=== PATIENT | male | born 1985 | race Caucasian/White ===

== ENCOUNTER 2023-09-05 10:22 | Emergency (ER) | payer BC ==
[2023-09-05 11:08] LABS: BASOPHILS # (AUTO) 0.2 10^3/uL (0.0-0.1); BASOPHILS % (AUTO) 1.3 %; EOSINOPHILS # (AUTO) 0.8 10^3/uL (0.0-0.7); EOSINOPHILS % (AUTO) 7.4 %; HCT - HEMATOCRIT 50.9 % (42.0-52.0); HGB - HEMOGLOBIN 16.3 g/dL (14.0-18.0); LYMPHOCYTES # (AUTO) 3.9 10^3/uL (1.5-3.5); LYMPHOCYTES % (AUTO) 35.1 %; MEAN CORPUSCULAR HEMOGLOBIN 28.4 pg (27.0-31.0); MEAN CORPUSCULAR VOLUME 88.8 fL (80.0-94.0); MEAN PLATELET VOLUME 9.6 fL (7.4-11.4); MONOCYTES # (AUTO) 0.7 10^3/uL (0.0-1.0); MONOCYTES % (AUTO) 6.3 %; NEUTROPHILS # (AUTO) 5.5 10^3/uL (1.5-6.6); NEUTROPHILS % (AUTO) 49.6 %; PLT - PLATELET COUNT 389 10^3/uL (130-450); RED BLOOD COUNT 5.73 10^6/uL (4.70-6.10); RED CELL DISTRIBUTION WIDTH 12.3 % (12.0-15.0); WHITE BLOOD COUNT 11.1 x10^3/uL (4.8-10.8)
--- NOTE | 2023-09-05 11:10 | ED Physician Documentation ---
PD HPI ABD PAIN - Stated complaint Stated Complaint: LT LWR ABD PX,SWEATY, NAUSEA - Chief complaint Chief Complaint: Abd Pain - History obtained from History obtained from: Patient - History of Present Illness Timing - onset: How many hours ago (1) Timing - duration: Hours (1) Timing - details: Abrupt onset, Still present Pain level max: 10 Pain level now: 10 Quality: Cramping (The patient had an onset of severe cramping pain left flank to left lower abdomen associated with nausea sweating and lightheadedness about 1 hour prior to arrival. He states similar symptoms to a kidney stone several years ago.), Aching, Pain (severe) Location: LLQ Radiation: Left flank Associated symptoms: Nausea, Vomiting. No: Diarrhea, Dysuria, Hematuria Similar symptoms before: Diagnosis (kidney stone several years ago.) Recently seen: Not recently seen Review of Systems Constitutional: denies: Fever, Chills Nose: denies: Rhinorrhea / runny nose, Congestion Throat: denies: Sore throat Respiratory: denies: Cough GI: denies: Constipation, Diarrhea PD PAST MEDICAL HISTORY - Past Medical History Past Medical History: Yes Cardiovascular: None Respiratory: None Neuro: None Endocrine/Autoimmune: None GI: GERD : Kidney stones HEENT: None Psych: None Derm: Other drug resistant infections - Past Surgical History Past Surgical History: No - Present Medications Home Medications: Ambulatory Orders Medication Instructions Recorded Confirmed Ibuprofen [Motrin] 600 mg PO TID PRN #25 tab 09/05/23 Ondansetron Odt [Zofran] 4 mg TL Q6H PRN #10 tablet 09/05/23 Oxycodone HCl/Acetaminophen 1 each PO Q6H PRN #20 tablet 09/05/23 [Percocet 5-325 mg Tablet] Tamsulosin [Flomax] 0.4 mg PO DAILY #5 cap 09/05/23 - Allergies Allergies/Adverse Reactions: Allergies Allergy/AdvReac Type Severity Reaction Status Date / Time No Known Drug Allergies Allergy Verified 09/05/23 10:44 - Social History Does the pt smoke?: No Smoking Status: Never smoker Does the pt drink ETOH?: No Does the pt have substance abuse?: No - Immunizations Immunizations are current?: Yes - POLST Patient has POLST: No PD ED PE NORMAL - Vitals Vital signs reviewed: Yes - General General: Alert and oriented X 3, Well developed/nourished, Other (severe pain, pale and diaphoretic. ) - Neck Neck: Supple, no meningeal sign, No adenopathy - Cardiac Cardiac: No murmur. No: RRR (bradycardic) - Respiratory Respiratory: No respiratory distress, Clear bilaterally - Abdomen Abdomen: Normal bowel sounds, Soft, Non distended, No organomegaly, Other (some tender left abd without guarding nor percussion tenderness. ) - Derm Derm: Other (pale and diaphoretic initially. ). No: Normal color, Warm and dry - Neuro Neuro: Alert and oriented X 3, No motor deficit, Normal speech Results - Vitals Vitals: Vital Signs - 24 hr 09/05/23 09/05/23 09/05/23 10:45 11:28 12:00 Temperature 36.4 C L Heart Rate 41 L 45 L 47 L Respiratory 18 14 17 Rate Blood Pressure 133/76 H 146/86 H 154/78 H O2 Saturation 100 100 98 09/05/23 09/05/23 09/05/23 13:00 13:30 14:00 Temperature Heart Rate 51 L 49 L 54 L Respiratory 16 14 14 Rate Blood Pressure 145/81 H 121/82 H 111/68 O2 Saturation 97 97 97 Oxygen O2 Source Room air - Labs Labs: Laboratory Tests 09/05/23 09/05/23 09/05/23 10:56 10:56 10:56 WBC 11.1 H RBC 5.73 Hgb 16.3 Hct 50.9 MCV 88.8 MCH 28.4 MCHC 32.0 RDW 12.3 Plt Count 389 MPV 9.6 Neut # (Auto) 5.5 Lymph # (Auto) 3.9 H Ogle # (Auto) 0.7 Eos # (Auto) 0.8 H Baso # (Auto) 0.2 H Absolute Nucleated RBC 0.00 Nucleated RBC % 0.0 Sodium 139 Potassium 4.1 Chloride 106 Carbon Dioxide 26 Anion Gap 7.0 BUN 8 Creatinine 0.9 Estimated GFR (MDRD) 95 Glucose 140 H Calcium 9.6 Magnesium 2.0 Total Bilirubin 0.7 AST 32 ALT 60 Alkaline Phosphatase 55 Total Protein 7.5 Albumin 4.6 Globulin 2.9 Albumin/Globulin Ratio 1.6 Lipase 29 - Rads (name of study) abd/pelvic CT Relevant Findings:: Prelim report reviewed, EMP independent interpretation of test (3 mm left ureteral stone with mild hydro-. Incidental note of fatty liver and sigmoid diverticulosis) PD Medical Decision Making - ED course Complexity details: reviewed results (left ureteral stone 3 mm. ), considered differential, d/w patient ED course: The patient presented with the sudden onset of pain of the left flank to the left abdomen 1 hour prior. He was very markedly pale, diaphoretic, nauseous. He denied any chest pain. However he did appear bradycardic with a heart rate of 41. Blood pressure was also borderline low approximately 100 systolic. Initial concern of course for heart related or vascular. However on exam he seemed alert and conversant without any notable abdominal tenderness. The pain was in the distribution and character consistent with kidney stone. He states he did have a similar response of the sweaty and lightheaded with the prior kidney stone several years ago. He was on the heart monitor. EKG was done which showed sinus bradycardia. His color was pale but improved with initial IV fluid and the initial pain medicines. Heart rate improved to mid 50s which the patient states is baseline for him. Blood pressure was in the normal range subsequently as well. The patient was given IV fluids as well as Toradol, Zofran and hydrocodone hydromorphone for the pain. This provided a decrease in the pain level from approximately 10-7 or 8. Repeat dose of hydromorphone then guided into the range of 3-5. He did have some variability in the intensity. He had an EKG G that did not show any ischemic changes. CT scan of the abdomen including contrast did not show any obvious vascular problems. There is no free fluid. It was present a 3 mm stone in the proximal third left ureter with mild hydronephrosis. Incidental findings were some fatty liver and moderate sigmoid diverticulosis. I conveyed both of these to the patient and he was given a copy of his CT report. The CT official reading did agree with the 3 mm stone in the ureter. The patient still had moderate pain. He was given lidocaine IV for renal dose seen for stone. Also tamsulosin orally and dexamethasone anti-inflammatory. Repeat dose of hydromorphone as well. At this point the patient is stating he is reasonably comfortable with the pain level varying between 2 and 4 which she feels is tolerable for oral medicine. They are visiting from [facility] and will be leaving at the end of the week. I did provide urology follow-up phone number for here if he needs urgent follow-up in the meantime. Otherwise he can return to the ER. Basic blood count and chemistry panel did not have any notable abnormalities. Departure - Departure Clinical Impression: Left sided abdominal pain, Ureterolithiasis Condition: Stable Record reviewed to determine appropriate education?: Yes Instructions: ED Stone Renal W Colic Follow-Up: Taiwo Salgado MD [Provider Admit Priv/Credential] - Prescriptions: Tamsulosin [Flomax] 0.4 mg PO DAILY #5 cap Ibuprofen [Motrin] 600 mg PO TID PRN #25 tab PRN Reason: Pain Oxycodone HCl/Acetaminophen [Percocet 5-325 mg Tablet] 1 each PO Q6H PRN #20 tablet PRN Reason: pain Ondansetron Odt [Zofran] 4 mg TL Q6H PRN #10 tablet PRN Reason: Nausea / Vomiting Comments: You do have an approximately 3 mm stone on the left that still in the upper part of the ureter. Hopefully the worst of the pain is over now as we try to relieve some of the spasming and inflammation associated with the initial passage of the stone. Stay well-hydrated. Use a combination of anti-inflammatory such as higher strength ibuprofen 3 times daily with food. Use ondansetron if needed for nausea. Commonly will add a medication to help with his spasming of the ureter called t amsulosin. Add acetaminophen/Tylenol 500 to 650 mg 4 times daily over the next several days. I also prescribed oxycodone pain medicine to use every 4-6 hours if needed for worse pain. Hopefully this will be short-term and the stone of your size will pass about 90% of the time within a couple of days. I did give you the name of the urologist in town if you are not a apparently passed the stone over the next couple of days and are looking for follow-up. If you are doing well with the medication or have passed the stone then obviously no follow-up is needed. If you are doing well with the stone and medication but have not apparently passed it over the next week or so, then follow-up with the urologist back home in [place]. I sent your prescriptions to your listed pharmacy. I am prescribing a short course of narcotic pain medication for you. These are potentially dangerous and addictive medications that should be used carefully. These medications may constipate you. Take an [id number] stool softener such as docusate twice daily with plenty of water while taking these medications. If you go 24 hours without a bowel movement, take [id number] MiraLAX, per package instructions. Do not drink or drive while taking these medications. If you received narcotic or sedating medications while in the emergency department do not drive for 24 hours. Store this medication in a safe, secure place and out of reach of children. It is a violation of federal law to give or sell this medication to another person or to use in a manner other than prescribed. The ED will not refill narcotic prescriptions, including prescriptions lost or stolen. You can dispose of unwanted medications at the [facility]'s office or at several pharmacies such as [facility]. Return to the ER certainly if worsening pain despite medications etc. Forms: PCP List
[2023-09-05 11:22] LABS: ALBUMIN 4.6 g/dL (3.2-5.5); ALBUMIN/GLOBULIN RATIO 1.6 (1.0-2.2); BILIRUBIN,TOTAL 0.7 mg/dL (0.2-1.0); CALCIUM 9.6 mg/dL (8.5-10.3); CREATININE 0.9 mg/dL (0.6-1.3); POTASSIUM 4.1 mmol/L (3.5-4.5); TOTAL PROTEIN 7.5 g/dL (6.4-8.9)
[2023-09-05] MEDS: KETOROLAC 15 MG/ML VIAL IVP STA (11:24)
[2023-09-05] MEDS: HYDROmorphone 1 MG/ML CARPUJECT IVP STA ×3 (11:24→13:50)
[2023-09-05] MEDS: ONDANSETRON 4 MG/2 ML VIAL IVP STA (11:25)
[2023-09-05] MEDS: SODIUM CHLORIDE 0.9% 1,000 ML IV STA (11:27)
[2023-09-05] MEDS ORDERED: iohexoL-300 100 ML VIAL ONE (11:56)
--- NOTE | 2023-09-05 12:45 | CT Report ---
PROCEDURE: Abdomen/Pelvis W INDICATIONS: left flank to abd pain CONTRAST: 100ml omni 300 TECHNIQUE: After the administration of intravenous contrast, a CT scan of the abdomen and pelvis was performed. Images were recorded and evaluated at appropriate window settings. Reformats: coronal and sagittal. F or radiation dose reduction, the following was used: automated exposure control, adjustment of mA and /or kV according to patient size. COMPARISON: None. FINDINGS: Image quality: Diagnostic. Lower chest: Unremarkable. Liver: No solid mass. Moderate diffuse hepatic steatosis with prominence of the left lobe of the live r. Gallbladder: No radiopaque stones or wall thickening. Biliary tree: No intrahepatic or extrahepatic dilation, accounting for age. Spleen: No splenomegaly. Pancreas: No pancreatic ductal dilation. Adrenals: No adrenal nodule. Kidneys and ureters: There is a 3 mm obstructing stone in the left ureter with potential periureteral extravasation of urine. There is very mild left hydronephrosis noted. The ureteral stone is present at the level of L3. Size and enhancement of both kidneys is within normal limits. No right hydronephr osis. Stomach, bowel and peritoneum: No gastric or small bowel dilation. No abnormal wall thickening. No pa thologic free fluid. Moderate sigmoid diverticulosis. Lymph nodes: No central or retroperitoneal adenopathy. Vessels: No infrarenal aortic aneurysm. Patent portal vein. PELVIS Reproductive organs: Unremarkable. Bladder: No abnormal wall thickening, accounting for underdistention. Pelvic lymph nodes: No pelvic adenopathy by size criteria. Bones: No aggressive osseous abnormality. Other: No significant ventral or inguinal hernia. IMPRESSION: 1. A 3 mm stone at the level of L3 and the left ureter results in mild left hydronephrosis. There is a question of left periureteral extravasation of urine. 2. Moderate diffuse hepatic steatosis with prominence of the left lobe of the liver. 3. Moderate sigmoid diverticulosis, advanced for patient age. Reviewed by: Slim Mendoza MD on 09/05/2023 12:44 PM PDT Approved by: Slim Mendoza MD on 09/05/2023 12:44 PM PDT Station ID: [id number]
[2023-09-05] MEDS: iohexoL-300 100 ML VIAL IVP ONE (13:01)
[2023-09-05] MEDS: LIDOCAINE-MPF 2% 8 ML in SODIUM CHLORIDE 0.9% 50 ML IV STA (13:50)
[2023-09-05] MEDS: DEXAMETHASONE 10 MG/ML VIAL IVP STA (13:50)
[2023-09-05 14:12] VITALS: BP 111/68; O2SAT 97
== END 2023-09-05 14:26 | disposition home or self-care (01) ==
LOC: ED 10:22
DX: N13.2 Hydronephrosis with renal and ureteral calculous obstruction (principal)
CPT/HCPCS: 36415; 74177; 80053; 83690; 83735; 85025; 93005; 96365; 96375; 96376; 99284; 99285; J1170; J7040; Q9967